=== PATIENT | male | born 1980 | race Caucasian/White ===

== ENCOUNTER → 2016-06-03 | Outpatient (CLI) | payer MEDICAID ==
--- NOTE | ~2016-06-03 | MR113 ---
[facility] A Service of [facility] [place] RADIOLOGY TEXT RESULTS PATIENT: BLAKE LOYOLA LOCATION: [facility] : 76 UNIT #: [id number] AGE: [address]: YUKO RODRÍGUEZ NP SEX: M ORDER DR: [id number] [place] [id number] O MR#: [id number] Acc #: [id number] NAME: BLAKE LOYOLA : 1980 SEX: M STUDY DATE/TIME: 06/03/2016 16:02 UNIT: [facility] ROOM: STUDY DESCRIPTION: MR Lumbar Wo Contrast Attending Physician: Yuko Rodríguez Aprn Referring Physician: Yuko Rodríguez Aprn Ordering Physician: Staff Doctor Not On Primary Care Physician: Yuko Rodríguez Aprn MRI CENTER REPORT This report is preliminary unless electronic signature is present. EXAM Lumbar spine MRI without contrast 06/03/2016 PROCEDURE Routine unenhanced lumbar spine MRI. COMPARISON None. CLINICAL HISTORY Worsening low back pain, worsening for past 6 months. Right side greater than left with some radiation to the right leg. FINDINGS There is a very gentle levoscoliosis possibly positional. There is a slight 5-1 retrolisthesis. Bone marrow signal is within normal limits and the distal cord and conus are normal in position. At L1-2, there is a tiny right paracentral upward disc extrusion without canal stenosis or foraminal compromise. At 2-3, the disc, canal and foramina are normal. At 3-4, the disc, canal and foramina are normal. At 4-5, the disc canal and left foramen are normal. There is slight right foraminal narrowing. At 5-1, there is slight retrolisthesis and a small central disc protrusion and mild canal compromise, and mild right but moderate or even [id number] left foraminal compromise. IMPRESSION [facility] A Service of [facility] [place] RADIOLOGY TEXT RESULTS PATIENT: BLAKE LOYOLA LOCATION: [facility] : 76 UNIT #: [id number] AGE: [address]: YUKO RODRÍGUEZ [employer] SUPERVISOR SEX: M ORDER DR: Degenerative changes most prominent at 5-1 where there is left moderate or [id number] foraminal stenosis. There is mild right 5-1 foraminal compromise. Dictated by... Meir Braxton M.D. THIS IS AN ELECTRONICALLY VERIFIED REPORT Meir Braxton M.D. at 06/04/2016 4:11 PM FRANKIE/alejandrina TD: 06/04/2016 11:46 JOB #: [id number] MRI [facility]ENTER REPORT
== END | disposition home or self-care (01) ==
LOC: SMRI 15:40
DX: M54.5 Low back pain (principal); R20.0 Anesthesia of skin; M47.816 Spondylosis without myelopathy or radiculopathy, lumbar region
CPT/HCPCS: 72148